=== PATIENT | male | born 2000 | race Caucasian/White ===

== ENCOUNTER 2023-09-16 16:58 | Emergency (ER) | payer OTHER, SELFPAY ==
--- NOTE | 2023-09-16 17:03 | ED_ITS ---
HPI - Abdominal Pain General Chief Complaint: Abdominal Pain Stated Complaint: BLOOD IN STOOL/ABD PAIN/NAUSEA/BLOATED Time Seen by Provider: 09/16/23 17:15 Source: patient and RN notes reviewed Mode of arrival: ambulatory Limitations: no limitations History of Present Illness HPI narrative: 23-year-old male presents with concern for 2-3 day history of blood in his stool, abdominal pain, nausea and bloating. Reports stools are black and tarry, reports he also sees bright red blood. He reports left-sided abdominal pain. Denies fever, body aches, chills, sweats. Denies fatigue, general malaise. MD elicited complaint: abdominal pain Related Data Home Medications Medication Instructions Recorded Confirmed No Home Medications 09/16/23 09/16/23 Allergies Allergy/AdvReac Type Severity Reaction Status Date / Time No Known Allergies Allergy Verified 09/16/23 17:15 Review of Systems Review of Systems: CONSTITUTIONAL: Denies malaise, chills, sweats, or fever. RESPIRATORY: Denies cough or dyspnea. GASTROINTESTINAL: Reports left-sided abdominal pain, nausea, diarrhea, bloody MUSCULOSKELETAL: Denies myalgia. NEUROLOGIC: Denies headache. All systems reviewed & are unremarkable except as noted in HPI and below PMFSH Comments At time of signature, agree with nursing past medical, surgical, social and family history. There is no relevant family history pertinent to the presenting complaint Exam Narrative: GENERAL: Well-appearing, well-nourished, and in no acute distress. HEAD: Normocephalic, atraumatic. EYES: PERRLA, conjunctivae clear, and EOMI. ENT: Nares clear. Mucous membranes moist. NECK: Supple. No lymphadenopathy CHEST: Speaks in full sentences. No respiratory distress. HEART: Regular rate and rhythm. SKIN: Warm, dry, no rash. NEURO: Alert and oriented x3. PSYCH: Normal mood and affect Course Course Emergency Course: Patient is aware of understands and agrees to be transferred to the ER. Patient agrees to proceed directly to the emergency department. Portions of this record may have been created with voice recognition software Level of Care: Express Care Visit Vital Signs Vital signs: Reviewed. Transfer Transfered to: [facility] Transportation: Other (Private vehicle) Transfer rationale: Abdominal pain, blood in the stool Accepting physician: Joe MDM - Abdominal Pain MDM Narrative Medical decision making narrative: Patient's symptoms warrant evaluation emergency room. Critical Care Time Critical Care Time Critical Care Time: No Discharge Plan Discharge Clinical Impression: Abdominal pain Patient Disposition: Acute Care Hospital Condition: Stable Follow-up/Referrals: UNKNOWN,DOCTOR [Non-Staff] - Time of Disposition: 17:26
[2023-09-16 17:06] VITALS: BP 145/77; PULSE 67; RESP 16; TEMP 36.6; O2SAT 99
== END 2023-09-16 17:24 | disposition short-term general hospital (02) ==
PROVIDERS: Emergency Provider Nurse Practitioner
DX: R10.9 Unspecified abdominal pain (principal)
CPT/HCPCS: 99212; G0463

== ENCOUNTER 2023-09-16 17:40 | Emergency (ER) | payer OTHER, SELFPAY ==
--- NOTE | ~2023-09-16 | CT_ITS ---
EXAMINATION: CT abdomen pelvis w con DATE: 09/16/2023 18:55 INDICATION: LLQ pain, BRBPR TECHNIQUE: Computed tomography (CT) of the abdomen and pelvis was performed with 100 mL Omnipaque-350 intravenous contrast. Automated exposure control and iterative reconstruction technique were employe d. The dose-length product was 1399.67 mGy-cm. COMPARISON: None. FINDINGS: Lower thorax: Unremarkable Liver: Normal. Biliary/Gallbladder: Gallbladder is normal. No bile duct dilation. Pancreas: No mass or duct dilation. Spleen: Normal. Adrenals:No mass. Kidneys: No suspicious mass, obstructing stone, or hydronephrosis. GI tract: No small or large bowel dilation. Normal appendix. Mesentery/Peritoneum: No ascites, mass, or free air. Enlarged mesenteric lymph nodes, with the sugges tion of mild/early fat halos. Retroperitoneum: No mass. Prominent but not pathologically enlarged periaortic nodes. Pelvis: Pelvic organs are within normal limits. Prominent but not pathologically enlarged pelvic node s. Soft Tissues: Soft tissues and body wall unremarkable. Prominent but not pathologically enlarged bila teral inguinal nodes. Bones: No acute osseous finding. IMPRESSION: Splenomegaly. Mesenteric lymphadenopathy, which may represent mesenteric panniculitis or other lymph node disorder. Consider repeat evaluation to exclude lymphoma. Reviewed, dictated and finalized at location [facility]. IMPRESSION: Splenomegaly. Mesenteric lymphadenopathy, which may represent mesenteric panniculitis or othe r lymph node disorder. Consider repeat evaluation to exclude lymphoma.
[2023-09-16 17:43] VITALS: BP 174/100; PULSE 69; RESP 17; TEMP 36.8; O2SAT 99
--- NOTE | 2023-09-16 17:58 | ED.ABDPAIN ---
HPI - Abdominal Pain General Chief Complaint: Abdominal Pain <GUS Whatley Last Filed: 09/16/23 19:26> Stated Complaint: abd pain with blood in stool <GUS Whatley Last Filed: 09/16/23 19:26> Time Seen by Provider: 09/16/23 17:40 <Ruth Escalante PA-C - Last Filed: 09/16/23 19:26> History of Present Illness HPI narrative: 23-year-old male presents to the emergency department for left lower quadrant abdominal pain and blood in his stools for 4 days. Patient presented to urgent care prior to coming to the ED and was advised to come to the ED for further evaluation. He states his pain is mostly in his left mid and left lower quadrant abdomen and he describes it as a bloating and uncomfortable sensation. It was worse when he was working out at the gym today. He states that in the mornings he has a large amount of dark tarry stools, however throughout the day the stools become more bright red. He states he is filling up the toilet bowl with blood by the end of the day. He states he had a similar episode when he was in high school. He underwent colonoscopy and was told he had a micro tear but did not undergo any intervention. He denies alcohol use. States he uses NSAIDs very rarely when he has a headache. No history of liver disease. He does note that his mother has Crohn's disease. He denies any lightheadedness, chest pain, syncope, vomiting, dysuria, fever. <Ruth Escalante PA-C - Last Filed: 09/16/23 19:26> Related Data Allergies/Adverse Reactions: Allergies Allergy/AdvReac Type Severity Reaction Status Date / Time No Known Allergies Allergy Verified 09/16/23 17:15 <Ruth Escalante PA-C - Last Filed: 09/16/23 19:26> Review of Systems Review of Systems: CONSTITUTIONAL: Denies fever, chills, or sweats. EYES: Denies visual changes, redness, or discharge. ENT: Denies rhinorrhea, congestion, sore throat, or otalgia. CARDIOVASCULAR: Denies chest pain, palpitations, or edema. RESPIRATORY: Denies cough or dyspnea. GASTROINTESTINAL: See HPI GENITOURINARY: Denies dysuria or hematuria. SKIN: Denies rash or itching. MUSCULOSKELETAL: Denies back pain, joint pain, or myalgia. NEUROLOGIC: Denies headache, numbness, or weakness. PSYCHIATRIC: Denies anxiety or depression. <Ruth Escalante PA-C - Last Filed: 09/16/23 19:26> Exam Narrative: GENERAL: Well-appearing, well-nourished, and in no acute distress. HEAD: Normocephalic, atraumatic. EYES: PERRLA and EOMI. ENT: Nares clear, no rhinorrhea or epistaxis. Mucous membranes moist. NECK: Supple. CHEST: Clear to auscultation. No respiratory distress. HEART: Regular rate and rhythm. No murmur heard. Normal peripheral pulses. ABDOMEN: Quiet bowel sounds. Abdomen soft with mild tenderness in the left lower quadrant. No rebound, guarding or rigidity. No CVA tenderness. Rectal exam without any external or obvious internal hemorrhoids. Scant amount of bright red blood noted on glove after exam. Hemoccult positive. No melena appreciated. EXTREMITIES: Normal range of motion. No edema. SKIN: Warm, dry, no rash. NEURO: No focal deficits. Alert and oriented x3 <Ruth Escalante PA-C - Last Filed: 09/16/23 19:26> Course PATHOLOGY MANAGER/PA Physician Supervision For this patient encounter, I reviewed the PATHOLOGY MANAGER or PA documentation, treatment plan, and medical decision making; and I had [id number] time with this patient. <Otis Ortiz MD - Last Filed: 09/17/23 12:11> Vital Signs Vital signs: Vital Signs Temperature 98.2 F 09/16/23 17:43 Pulse Rate 69 09/16/23 17:43 Respiratory Rate 17 09/16/23 17:43 Blood Pressure 174/100 H 09/16/23 17:43 Pulse Oximetry 99 09/16/23 17:43 Oxygen Delivery Room Air 09/16/23 17:43 Temperature 98.2 F 09/16/23 17:43 Pulse Rate 66 09/16/23 19:08 Respiratory Rate 16 09/16/23 19:08 Blood Pressure 126/87 09/16/23 19:08 Pulse Oximetry 100 09/16/23 19:08
[2023-09-16] MEDS: PANTOPRAZOLE SODIUM IV 40 MG VIAL 80 MG IV PUSH (18:10)
[2023-09-16] MEDS: SODIUM CHLORIDE 0.9% IV 1,000 ML 999 ML IV CONT (18:10)
[2023-09-16] MEDS: ONDANSETRON INJ 4 MG/2 ML VIAL IV PUSH (18:10)
[2023-09-16 18:12] LABS: Basophils Absolute Auto 0.1 K/mm3 (0.0-0.1); Basophils Percent Auto 0.6 % (0.2-1.2); Eosinophils Absolute Auto 0.2 K/mm3 (0-0.3); Eosinophils Percent Auto 1.7 % (0-4.4); Hematocrit 45.9 % (42.0-52.0); Hemoglobin 15.4 g/dL (14.0-18.0); Immature Granulocyte Absolute 0.04 K/mm3 (0.00-0.031); Immature Granulocyte Percent A 0.5 % (0-0.5); Lymphocytes Absolute Auto 2.28 K/mm3 (0.9-3.2); Lymphocytes Percent Auto 26.6 % (18.3-44.2); Mean Corpuscular HGB Conc 33.6 g/dl (32-36); Mean Corpuscular Hemoglobin 29.4 pg (26-34); Mean Corpuscular Volume 87.6 fl (80-100); Monocytes Absolute Auto 0.7 K/mm3 (0.1-0.6); Monocytes Percent Auto 7.6 % (2.6-8.5); Neutrophils Absolute Auto 5.4 K/mm3 (1.3-6.7); Platelet Count Result 158 k/mm3 (150-375); Red Blood Count 5.24 M/mm3 (4.6-6.20); Red Cell Distribution Width 12.1 % (11.5-14.5); White Blood Count 8.6 K/mm3 (4.5-10.0)
[2023-09-16 18:18] LABS: Partial Thromboplastin Time 27.4 Seconds (22.3-36.8); Prothrombin Time 13.7 Seconds (11.1-14.7)
[2023-09-16 18:21] LABS: Appearance Urine Clear (Clear); Bacteria Urine None Seen /hpf; Bilirubin Urine Negative (Negative); Blood Urine Trace (Negative); Color Urine Yellow (Yellow); Glucose Urine UA Negative (Negative); Ketones Urine Negative (Negative); Leukocyte Esterase Ur Negative LEU/UL (Negative); Nitrate Urine Negative (Negative); Non Pathogenic Casts 0-2; Protein Urine Negative (Negative); RBC Urine 0-2 /hpf (0-2); Specific Grav Ur 1.026 (1.001-1.035); Squamous Epithelial Cell Urine None Seen /hpf (Few); Urobilinogen Urine 0.2 mg/dL (<2.0); WBC Urine 0-5 /hpf (0-3); pH Urine 5.5 (5.0-9.0)
[2023-09-16 18:25] LABS: Lactic Acid Reflex 0.8 mmol/L (0.7-2.0)
[2023-09-16 18:27] LABS: Alanine Aminotransferase 42 U/L (6-50); Albumin Level 4.8 g/dL (3.5-5.1); Alkaline Phosphatase 48 U/L (38-126); Anion Gap 11 mmol/L (4-12); Aspartate Amino Transferase 51 U/L (17-59); Bilirubin,Total 0.7 mg/dL (0.2-1.3); Blood Urea Nitrogen 25 mg/dL (9-20); Calcium 9.2 mg/dL (8.4-10.2); Carbon Dioxide 23 mmol/L (22-30); Chloride 105 mmol/L (98-107); Estimated CRCL calculation 149 ml/min; Estimated Glomerular Filt Rate > 60; Glucose 88 mg/dL (65-110); Lipase 92 U/L (23-300); Potassium 3.6 mmol/L (3.4-5.0); Sodium 139 mmol/L (137-145)
[2023-09-16 18:31] LABS: Add Urine Microscopic? YES
[2023-09-16 18:45] VITALS: BP 140/75; PULSE 81; RESP 17; O2SAT 98
[2023-09-16 19:08] VITALS: BP 126/87; PULSE 66; RESP 16; O2SAT 100
--- NOTE | 2023-09-16 19:22 | PC.NURSE ---
Per DIDI Miranda, confirmation blood draw not needed. Patient will be discharged.
== END 2023-09-16 19:32 | disposition home or self-care (01) ==
PROVIDERS: Emergency Provider Physician Assistant
DX: R10.32 Left lower quadrant pain (principal); K62.5 Hemorrhage of anus and rectum; R59.1 Generalized enlarged lymph nodes
CPT/HCPCS: 36415; 74177; 80053; 81001; 83605; 83690; 85025; 85610; 85730; 86850; 86900; 86901; 96361; 96374; 96375; 99284; C9113; J2405; J7030; Q9967

== ENCOUNTER 2023-09-24 14:10 | Outpatient (CLI) | payer OTHER, SELFPAY ==
[2023-09-24 14:35] LABS: Basophils Percent Auto 0.4 % (0.2-1.2); Eosinophils Absolute Auto 0.1 K/mm3 (0-0.3); Eosinophils Percent Auto 1.6 % (0-4.4); Hematocrit 42.5 % (42.0-52.0); Hemoglobin 14.5 g/dL (14.0-18.0); Immature Granulocyte Absolute 0.04 K/mm3 (0.00-0.031); Immature Granulocyte Percent A 0.5 % (0-0.5); Lymphocytes Absolute Auto 1.77 K/mm3 (0.9-3.2); Lymphocytes Percent Auto 23.1 % (18.3-44.2); Mean Corpuscular HGB Conc 34.1 g/dl (32-36); Mean Corpuscular Hemoglobin 29.6 pg (26-34); Mean Corpuscular Volume 86.7 fl (80-100); Mean Platelet Volume 9.7 fl (7.4-10.4); Monocytes Absolute Auto 0.7 K/mm3 (0.1-0.6); Monocytes Percent Auto 8.6 % (2.6-8.5); Neutrophils Absolute Auto 5.1 K/mm3 (1.3-6.7); Neutrophils Percent Auto 65.8 % (45.5-73.1); Platelet Count Result 157 k/mm3 (150-375); White Blood Count 7.7 K/mm3 (4.5-10.0)
[2023-09-24 21:49] LABS: Alanine Aminotransferase 27 U/L (6-50); Albumin Level 4.6 g/dL (3.5-5.1); Alkaline Phosphatase 43 U/L (38-126); Anion Gap 7 mmol/L (4-12); Aspartate Amino Transferase 26 U/L (17-59); Bilirubin,Total 0.6 mg/dL (0.2-1.3); Blood Urea Nitrogen 21 mg/dL (9-20); Calcium 9.3 mg/dL (8.4-10.2); Carbon Dioxide 28 mmol/L (22-30); Chloride 103 mmol/L (98-107); Estimated Glomerular Filt Rate > 60; Glucose 88 mg/dL (65-110); Lactate Dehydrogenase 189 U/L (120-246); Potassium 4.8 mmol/L (3.4-5.0); Sodium 138 mmol/L (137-145)
== END 2023-09-24 14:11 | disposition home or self-care (01) ==
PROVIDERS: Visit Provider Internal Medicine Hematology & Oncology
DX: C85.93 Non-Hodgkin lymphoma, unspecified, intra-abdominal lymph nodes (principal)
CPT/HCPCS: 36415; 80053; 83615; 85025; 88184

== ENCOUNTER 2023-10-28 00:36 | Day surgery (SDC) | payer OTHER, SELFPAY ==
[2023-10-08 11:54] VITALS: BMI 39.4
[2023-10-28 13:55] VITALS: BP 141/85; PULSE 74; RESP 20; TEMP 36.1; O2SAT 99
[2023-10-28 14:00] VITALS: BMI 39.9
--- NOTE | 2023-10-28 14:00 | SUR.PREOP ---
Dr. Patel and Dr. Rosas notified that patient ate eggs, toast, and sausage at noon.
[2023-10-28] MEDS: LACTATED RINGERS 1,000 ML 150 ML IV CONT (14:06)
--- NOTE | 2023-10-28 14:08 | P.PNAN_ITS ---
Anes - Initial Pre Proc Eval Procedure: Operation Date: 10/28/23 15:00 Proposed Procedures p Esophagogastroduodenoscopy & Colonoscopy - Jai Martin MD Date/Time: 10/28/23 14:08 Surgeon: Jai Martin MD Pre Op Diagnosis: LLQ pain, Melena, Nausea,Abdominal Distension Patient Data Age: 23 Gender: M Height: 1.83 m Weight: 133.5 kg Last Vital Signs Temp 97 F L 10/28/23 13:55 Pulse 74 10/28/23 13:55 Resp 20 10/28/23 13:55 BP 141/85 H 10/28/23 13:55 Pulse Ox 99 10/28/23 13:55 O2 Del Method Room Air 10/28/23 13:55 Allergies Allergy/AdvReac Type Severity Reaction Status Date / Time No Known Allergies Allergy Verified 10/28/23 13:54 Home Medications Medication Instructions Recorded Confirmed Type cetirizine 10 mg tablet (Zyrtec) 10 mg PO DAILY 10/08/23 10/28/23 History Patient hx anesthesia problems: none Family hx anesthesia problems: none Results Review: All pre-operative results and documents have been reviewed as part of the pre- operative evaluation. [facility] Past Medical History Medical History Allergies Family History Family History (Updated 09/28/23 @ 10:49 by Mary Carrington CMA) Mother Thyroid disorder Father Depression Grandparent Lymphoma Social History Social History Smoking status: Current every day smoker Tobacco type: e-cigarettes/vaping Alcohol intake: current Alcohol use details: Social Substance use: current Substance use type: marijuana Last use: week ago Living arrangements: with family Spiritual care concerns: No Anes - Eval Final PreProcedure Day of Procedure 10/28/23 14:08 Patient weight: morbidly obese Heart: regular rate and rhythm Lungs: clear to auscultation Airway: Mallampati scale class II Neurological: alert and oriented Last oral intake: >/= 8 hours ASA classification: III Emergent: no Anesthetic plan: proceed Anesthesia type and monitoring: general GIVS and standard monitoring Results Review: All pre-operative results and documents have been reviewed as part of the pre- operative evaluation. Informed Consent: The patient's anesthetic plan and its attendant risks and benefits were discussed with the patient/family/POA. Questions were solicited and answers provided to the satisfaction of the patient/family/POA.
--- NOTE | 2023-10-28 14:50 | PM.HPGS ---
History of Present Illness History of Present Illness Consent: Risks, benefits, and alternatives have been discussed and questions answered. Patient agrees to proceed with procedure. Chief complaint: LLQ pain, Melena, Nausea,Abdominal Distension Narrative: Harjinder Anders is a 23 year old male with episode of rectal bleeding, last colonoscopy 2014, also some abdominal discomfort and nausea. Here for egd and colonoscopy Review of Systems Review of Systems: All systems reviewed & are unremarkable except as noted in HPI and below PMFSH Past Medical History Medical History Allergies Family History Family History (Updated 09/28/23 @ 10:49 by Mary Carrington CMA) Mother Thyroid disorder Father Depression Grandparent Lymphoma Social History Social History Smoking status: Current every day smoker Tobacco type: e-cigarettes/vaping Alcohol intake: current Alcohol use details: Social Substance use: current Substance use type: marijuana Last use: week ago Living arrangements: with family Spiritual care concerns: No Meds Home Medications and Allergies Home Medications Medication Instructions Recorded Confirmed Type cetirizine 10 mg tablet (Zyrtec) 10 mg PO DAILY 10/08/23 10/28/23 History Allergies Allergy/AdvReac Type Severity Reaction Status Date / Time No Known Allergies Allergy Verified 10/28/23 13:54 Vital Signs Vital Signs - 24 hr 10/28/23 13:55 Temperature 97 F L Pulse Rate 74 Respiratory Rate 20 Blood Pressure 141/85 H Pulse Oximetry 99 Oxygen Delivery Room Air Exam Const: General: comfortable and no acute distress HENMT: Face/Nose/Sinus: Normal nares present Eyes: General: appearance normal, both eyes and all related structures Neck: Neck: no JVD Resp: Auscultation: clear to auscultation bilaterally Cardio: Rate: regular rate Rhythm: regular rhythm GI: Inspection: non-distended GI Palp: Yes Soft to palpation Skin: General skin exam: normal color Neuro: General: gait normal Speech: normal speech Extrem: General: normal to inspection Psych: Mental Status: mental status grossly normal Assessment and Plan Assessment and plan (1) Nausea: Code(s): R11.0 - Nausea Status: Acute Assessment and Plan: egd (2) Abdominal bloating: Code(s): R14.0 - Abdominal distension (gaseous) Status: Acute (3) Hematochezia: Code(s): K92.1 - Melena Status: Acute Assessment and Plan: colonoscopy
[2023-10-28] MEDS: BENZOCAINE (*SP) 60 ML SPRAY CAN (HURRICAINE) 1 SPRAY MUCOUS MEM (14:53)
--- NOTE | 2023-10-28 15:00 | SUR.OPER ---
EGD END 1500 COLONOSCOPY START 1506
[2023-10-28 15:16] VITALS: BP 118/71; PULSE 71; RESP 24; O2SAT 98
[2023-10-28 15:26] VITALS: BP 136/77; PULSE 72; RESP 17; O2SAT 98
[2023-10-28 15:36] VITALS: BP 119/93; PULSE 60; RESP 17; O2SAT 100
== END 2023-10-28 15:45 | disposition home or self-care (01) ==
PROVIDERS: Referring Provider Nurse Practitioner Family; Visit Provider Internal Medicine Gastroenterology
PROC: 0DJ08ZZ Inspection of Upper Intestinal Tract, Via Natural or Artificial Opening Endoscopic (ICD-10-PCS; CPT 43235; principal; 2023-10-28 15:00)
DX: K63.5 Polyp of colon (principal); K21.00 Gastro-esophageal reflux disease with esophagitis, without bleeding; K29.50 Unspecified chronic gastritis without bleeding; F17.290 Nicotine dependence, other tobacco product, uncomplicated; F12.90 Cannabis use, unspecified, uncomplicated; E66.01 Morbid (severe) obesity due to excess calories; Z68.39 Body mass index [BMI] 39.0-39.9, adult
CPT/HCPCS: 45385; 43239; 88305; J1596; J2704; J7120